=== PATIENT | male | born 1945 | race African-American/Black ===

== ENCOUNTER 2021-07-31 17:26 | Inpatient (IN) ==
[2021-07-31] MEDS ORDERED: hydrALAZINE 20 MG/1 ML VIAL IM STA (18:28)
[2021-07-31] MEDS ORDERED: amLODIPine 5 MG TABLET PO STA (18:28)
[2021-07-31] MEDS ORDERED: hydrALAZINE 20 MG/1 ML VIAL ONE (18:29)
[2021-07-31] MEDS ORDERED: amLODIPine 10 MG TABLET ONE (18:29)
[2021-07-31 22:29] LABS: Eosinophils # 0.2 10*3/uL (0.0-0.87); Eosinophils % 4.7 % (0.00-10.9); Hematocrit 35.8 VOL% (42.0-52.0); Hemoglobin 10.9 GM/DL (14.0-18.0); Immature Granulocytes % 0.3 %; Immature Granulocytes Absolute 0.01 #; Lymphocytes # 1.4 10*3/uL (1.4-4.0); Lymphocytes % 37.3 % (21.2-54.2); Mean Corpuscular HGB Conc 30.4 GM/DL (32-36); Mean Corpuscular Volume 73.1 FL (87-102); Monocytes # 0.5 10*3/uL (0.11-0.8); Monocytes % 12.4 % (1.7-12.7); Neutrophils % 44.3 % (38.7-73.9); Platelet Count 176 T/CUMM (130-400); Red Cell Distribution Width 14.9 % (9.3-17.3); White Blood Count 3.9 T/CUMM (4-12)
[2021-07-31 22:57] LABS: Alanine Aminotransferase 45 U/L (16-61); Albumin 3.7 G/DL (3.4-5.0); Alkaline Phosphatase 43 U/L (45-117); Aspartate Amino Transferase 19 U/L (0-37); Bilirubin,Total < 0.39 MG/DL (0.20-1.00); Blood Urea Nitrogen 14 MG/DL (7-18); Calcium 9.9 MG/DL (8.5-10.1); Carbon Dioxide 28 MMOL/L (21-32); Chloride 109 MMOL/L (98-107); Glucose 91 MG/DL (74-106); Osmolality,Calculated 281.3 MOS/KG (273-304); Potassium 3.9 MMOL/L (3.5-5.1); Sodium 141 MMOL/L (136-145)
[2021-07-31] MEDS ORDERED: ONDANSETRON 4 MG/2 ML VIAL IV PRN (23:16)
[2021-08-01] MEDS: ACETAMINOPHEN 325 MG TABLET PO PRN (03:42)
[2021-08-01 04:31] LABS: Basophils % 0.8 % (0.0-0.8); Eosinophils # 0.2 10*3/uL (0.0-0.87); Eosinophils % 5.8 % (0.00-10.9); Hematocrit 34.6 VOL% (42.0-52.0); Hemoglobin 10.5 GM/DL (14.0-18.0); Immature Granulocytes % 0.3 %; Immature Granulocytes Absolute 0.01 #; Lymphocytes # 1.3 10*3/uL (1.4-4.0); Lymphocytes % 35.7 % (21.2-54.2); Mean Corpuscular HGB Conc 30.3 GM/DL (32-36); Mean Corpuscular Volume 73.3 FL (87-102); Mean Platelet Volume 10.5 FL (9.6-12.0); Monocytes # 0.5 10*3/uL (0.11-0.8); Monocytes % 13.6 % (1.7-12.7); Neutrophils % 43.8 % (38.7-73.9); Platelet Count 164 T/CUMM (130-400); Red Blood Count 4.72 MC/CUMM (3.8-5.5); Red Cell Distribution Width 15.1 % (9.3-17.3); White Blood Count 3.6 T/CUMM (4-12)
[2021-08-01 04:56] LABS: Alanine Aminotransferase 40 U/L (16-61); Albumin 3.4 G/DL (3.4-5.0); Alkaline Phosphatase 41 U/L (45-117); Aspartate Amino Transferase 13 U/L (0-37); Bilirubin,Total < 0.39 MG/DL (0.20-1.00); Blood Urea Nitrogen 11 MG/DL (7-18); Calcium 9.4 MG/DL (8.5-10.1); Carbon Dioxide 29 MMOL/L (21-32); Chloride 109 MMOL/L (98-107); Glucose 93 MG/DL (74-106); Potassium 3.7 MMOL/L (3.5-5.1); Sodium 143 MMOL/L (136-145); Total Protein 6.5 G/DL (6.4-8.2)
[2021-08-01] MEDS: atenoloL 25 MG TABLET PO SCH (08:45)
[2021-08-01] MEDS: lisinopriL 20 MG TABLET PO SCH (08:45)
[2021-08-01] MEDS: PANTOPRAZOLE 40 MG TABLET PO SCH (08:45)
[2021-08-01] MEDS: metFORMIN 500 MG TABLET PO SCH (18:58)
[2021-08-01] MEDS: cloNIDine 0.1 MG TABLET PO PRN (22:46)
[2021-08-02] MEDS: cloNIDine 0.1 MG TABLET PO PRN ×2 (03:32→06:14)
[2021-08-02 05:15] LABS: Basophils % 0.8 % (0.0-0.8); Eosinophils # 0.3 10*3/uL (0.0-0.87); Eosinophils % 6.6 % (0.00-10.9); Hematocrit 35.3 VOL% (42.0-52.0); Hemoglobin 10.5 GM/DL (14.0-18.0); Immature Granulocytes % 0.3 %; Immature Granulocytes Absolute 0.01 #; Lymphocytes # 1.3 10*3/uL (1.4-4.0); Lymphocytes % 34.3 % (21.2-54.2); Mean Corpuscular HGB Conc 29.7 GM/DL (32-36); Mean Corpuscular Volume 73.5 FL (87-102); Mean Platelet Volume 11.3 FL (9.6-12.0); Monocytes # 0.5 10*3/uL (0.11-0.8); Monocytes % 12.8 % (1.7-12.7); Neutrophils % 45.2 % (38.7-73.9); Platelet Count 166 T/CUMM (130-400); Red Cell Distribution Width 15.1 % (9.3-17.3); White Blood Count 3.8 T/CUMM (4-12)
[2021-08-02 05:28] LABS: Calcium 9.1 MG/DL (8.5-10.1); Potassium 3.7 MMOL/L (3.5-5.1)
[2021-08-02] MEDS: PANTOPRAZOLE 40 MG TABLET PO SCH (09:39)
[2021-08-02] MEDS: lisinopriL 20 MG TABLET PO SCH (09:39)
[2021-08-02] MEDS: atenoloL 25 MG TABLET PO SCH (09:39)
[2021-08-02] MEDS: amLODIPine 10 MG TABLET PO SCH (09:39)
[2021-08-02] MEDS: metFORMIN 500 MG TABLET PO SCH ×2 (09:40→17:25)
[2021-08-03] MEDS: cloNIDine 0.1 MG TABLET PO PRN ×2 (04:59→11:41)
[2021-08-03] MEDS: metFORMIN 500 MG TABLET PO SCH ×2 (09:13→18:10)
[2021-08-03] MEDS: lisinopriL 20 MG TABLET PO SCH (09:13)
[2021-08-03] MEDS: PANTOPRAZOLE 40 MG TABLET PO SCH (09:13)
[2021-08-03] MEDS: atenoloL 25 MG TABLET PO SCH (09:13)
[2021-08-03] MEDS: amLODIPine 10 MG TABLET PO SCH (09:13)
[2021-08-03] MEDS ORDERED: POTASSIUM CHLORIDE 20 MEQ TABLET PO ONE (09:20)
[2021-08-03] MEDS: ACETAMINOPHEN 325 MG TABLET PO PRN (21:35)
[2021-08-04] MEDS: cloNIDine 0.1 MG TABLET PO PRN ×2 (05:02→11:56)
[2021-08-04] MEDS ORDERED: SERTRALINE 25 MG TABLET PO SCH (09:00)
[2021-08-04] MEDS ORDERED: busPIRone 10 MG TABLET PO ONE (09:04)
[2021-08-04] MEDS: amLODIPine 10 MG TABLET PO SCH (09:27)
[2021-08-04] MEDS: lisinopriL 20 MG TABLET PO SCH (09:27)
[2021-08-04] MEDS: cloNIDine 0.1 MG TABLET PO SCH ×2 (09:27→20:31)
[2021-08-04] MEDS: atenoloL 25 MG TABLET PO SCH (09:28)
[2021-08-04] MEDS: PANTOPRAZOLE 40 MG TABLET PO SCH (09:28)
[2021-08-04] MEDS: metFORMIN 500 MG TABLET PO SCH ×2 (09:29→16:44)
[2021-08-04] MEDS ORDERED: FUROSEMIDE 40 MG/4 ML VIAL IV ONE (12:06)
[2021-08-04] MEDS: MELATONIN 3 MG TABLET PO SCH (20:31)
[2021-08-04] MEDS: SERTRALINE 50 MG TABLET PO SCH (20:32)
[2021-08-05 05:07] LABS: Basophils % 1.1 % (0.0-0.8); Eosinophils # 0.2 10*3/uL (0.0-0.87); Eosinophils % 6.3 % (0.00-10.9); Hematocrit 35.3 VOL% (42.0-52.0); Hemoglobin 10.6 GM/DL (14.0-18.0); Immature Granulocytes % 0.3 %; Immature Granulocytes Absolute 0.01 #; Lymphocytes # 1.4 10*3/uL (1.4-4.0); Lymphocytes % 36.8 % (21.2-54.2); Mean Corpuscular Volume 73.4 FL (87-102); Mean Platelet Volume 10.7 FL (9.6-12.0); Monocytes # 0.4 10*3/uL (0.11-0.8); Monocytes % 11.6 % (1.7-12.7); Neutrophils % 43.9 % (38.7-73.9); Platelet Count 184 T/CUMM (130-400); Red Blood Count 4.81 MC/CUMM (3.8-5.5); Red Cell Distribution Width 14.9 % (9.3-17.3); White Blood Count 3.8 T/CUMM (4-12)
[2021-08-05 05:27] LABS: Calcium 9.7 MG/DL (8.5-10.1); Osmolality,Calculated 286.1 MOS/KG (273-304); Potassium 3.6 MMOL/L (3.5-5.1)
[2021-08-05] MEDS: cloNIDine 0.1 MG TABLET PO PRN (05:45)
[2021-08-05] MEDS: atenoloL 25 MG TABLET PO SCH (09:16)
[2021-08-05] MEDS: cloNIDine 0.1 MG TABLET PO SCH ×2 (09:16→21:13)
[2021-08-05] MEDS: lisinopriL 20 MG TABLET PO SCH (09:16)
[2021-08-05] MEDS: metFORMIN 500 MG TABLET PO SCH ×2 (09:17→16:19)
[2021-08-05] MEDS: amLODIPine 10 MG TABLET PO SCH (09:17)
[2021-08-05] MEDS: PANTOPRAZOLE 40 MG TABLET PO SCH (09:17)
[2021-08-05] MEDS: busPIRone 10 MG TABLET PO SCH ×2 (16:19→21:13)
[2021-08-05] MEDS: SERTRALINE 50 MG TABLET PO SCH (21:13)
[2021-08-05] MEDS: MELATONIN 3 MG TABLET PO SCH (21:13)
[2021-08-06] MEDS: metFORMIN 500 MG TABLET PO SCH (09:23)
[2021-08-06] MEDS: busPIRone 10 MG TABLET PO SCH ×2 (09:23→14:38)
[2021-08-06] MEDS: lisinopriL 20 MG TABLET PO SCH (09:23)
[2021-08-06] MEDS: atenoloL 25 MG TABLET PO SCH (09:23)
[2021-08-06] MEDS: cloNIDine 0.1 MG TABLET PO SCH (09:23)
[2021-08-06] MEDS: amLODIPine 10 MG TABLET PO SCH (09:23)
[2021-08-06] MEDS: PANTOPRAZOLE 40 MG TABLET PO SCH (09:24)
[2021-08-06 12:25] VITALS: BP 148/84
== END 2021-08-06 15:13 | disposition home health service (06) | DRG 305 ==
LOC: N.ED 17:26 → N.EDINP 17:26 → N.TELEN 08-01 14:29
PROVIDERS: ADMIT Family Medicine; ATTEND Family Medicine